=== PATIENT | male | born 1955 | race Caucasian/White ===

== ENCOUNTER → 2016-02-08 | Outpatient (CLI) | payer OTHER ==
--- NOTE | 2016-02-08 17:39 | DX ---
Right Ankle, Two Views History: Pain six weeks after blowing leaves. Pain on the lateral aspect. Findings: No acute fracture or dislocation identified. No evidence of acute fracture or dislocation o f the malleolus or ankle. Talar dome appears intact. Mild lateral soft tissue swelling. No significan t degenerative changes. Impressions 1. No definite acute fracture. 2. No significant degenerative changes.
== END ==
LOC: CIMAGING 15:32
PROVIDERS: ATTEND Internal Medicine
DX: M25.571 Pain in right ankle and joints of right foot (principal)
CPT/HCPCS: 73600-PO

== ENCOUNTER → 2016-09-20 | Outpatient (CLI) | payer OTHER | LOC: CIMAGING 12:27 | PROVIDERS: ATTEND Internal Medicine | DX: M50.31 Other cervical disc degeneration, high cervical region (principal); S13.150A Subluxation of C4/C5 cervical vertebrae, initial encounter; S13.160A Subluxation of C5/C6 cervical vertebrae, initial encounter; S13.180A Subluxation of C7/T1 cervical vertebrae, initial encounter; Z98.1 Arthrodesis status | CPT/HCPCS: 72040-PO ==

== ENCOUNTER → 2017-01-25 | Outpatient (CLI) | payer OTHER | LOC: CIMAGING 10:29 | PROVIDERS: ATTEND Internal Medicine | DX: M18.9 Osteoarthritis of first carpometacarpal joint, unspecified (principal) | CPT/HCPCS: 73130-PO ==

== ENCOUNTER → 2017-01-26 | Outpatient (CLI) | payer OTHER ==
[~2017-01-26] MED LIST: IOPAMIDOL (ISOVUE-300) 100 ML BTL ONE
== END ==
LOC: CIMAGING 08:12
PROVIDERS: ATTEND Internal Medicine
DX: R91.8 Other nonspecific abnormal finding of lung field (principal)
CPT/HCPCS: 71260; G0463; Q9967

== ENCOUNTER 2017-02-15 06:16 | Day surgery (SDC) | payer OTHER ==
[2017-02-15] MEDS ORDERED: fentaNYL 100 MCG/2 ML INJ ONE (06:46)
[2017-02-15] MEDS ORDERED: LIDOCAINE 1% 300 MG/30 ML SDV ONE (06:46)
[2017-02-15] MEDS ORDERED: MIDAZOLAM 2 MG/2 ML VIAL ONE (06:46)
[2017-02-15] MEDS ORDERED: ALBUTEROL 3 ML DEYVIAL ONE (06:46)
[2017-02-15] MEDS ORDERED: ONDANSETRON 4 MG/2 ML VIAL IVP STA (07:21)
--- NOTE | 2017-02-15 07:28 | PDPROPOC ---
Sedation Plan of Care Sedation Plan of Care: vital signs stable, mental status noted, patient educated of risks, benefits, alternatives, patient can tolerate sedation ASA Classification: ASA 3 Planned drugs: fentanyl, midazolam Mallampati Score: Class 2 Mallampati Reference Image: Patient passed 3-3-2 rule?: Yes
--- NOTE | 2017-02-15 07:28 | PDHPUP ---
History & Physical Update H&P update statement: This history and physical update is based on an assessment of the patient which was completed after admission or registration (within 24 hours), but prior to the surgery/procedure. H&P update: H&P reviewed & patient examined, no change in patient's condition since H&P completed
[2017-02-15 09:15] VITALS: BP 120/62; PULSE 68; RESP 16; TEMP 97.5; O2SAT 93
--- NOTE | 2017-02-15 09:21 | BVPULMO ---
Formerly [facility] Surgical Services- Pulmonology Patient Name: Elizabeth Valdez Procedure Date: 02/15/2017 7:36 AM Patient Type: Outpatient Attending MD/ER Physician: Ayush Chaney MD Procedure: Bronchoscopy Indications: Lung mass Providers: Ayush Chaney MD Medicines: Lidocaine 1% applied to cords 2 mL, Lidocaine 1% applied to the tracheobronchia l tree 8 mL, Fentanyl 50 mcg IV, Midazolam 2 mg IV Complications: No immediate complications Procedure: After informed consent, a time out was performed. N95 masks were worn, and the procedure was done in a negative pressure room. The patient was given appropria te topical anesthesia and intravenous sedation. The fiberopic bronchoscope was pas sed via a bite block orally into the larynx and subsequently into the lower trachea bronchial tree. Throughout the procedure, the patient's blood pressure, pulse, and oxygen saturations were monitored continuously. The Bronchoscope (Video) was introduced through the mouth and advanced to the tracheobronchial tree of both lungs. The procedure was accomplished without difficulty. The patient tolerated the procedure well. Moderate Sedation: Moderate (conscious) sedation was administered by the endoscopy nurse and super vised by the endoscopist. The following parameters were monitored: oxygen saturation, heart rate, blood pressure, respiratory rate, EKG, adequacy of pulmonary ventilation, and response to care. Findings: Right Lung Abnormalities: A completely obstructing mass was found. The mass was infiltrative. The lesion was not traversed. Extrinsic compression was found in the superior segment of the right lower lobe (B6). The airway lumen is occluded. Th e lesion was not traversed. Granulation tissue was found in the middle portion in the bronchus intermedius. It is not obstructing the airway. Endobronchial biopsies of a lesion were performed in the superior segment of th e right lower lobe using a forceps. Five samples were obtained. Transbronchial biopsies of a mass were performed at the guillermo using a needle. The sampling device penetrated the full thickness of the bronchial wall in order to reach the sampling site. Four biopsy passes were performed. Protected brushings of a lesion were obtained in the bronchus intermedius with a cytology brush. Washings were obtained. The return was clear. Post Op Diagnosis: - Lung mass - An infiltrative mass was found. This lesion is likely malignant. - Extrinsic compression was found in the superior segment of the right lower lo be (B6) secondary to a mass. - Granulation tissue was found in the bronchus intermedius. - An endobronchial biopsy was performed. - Transbronchial lung biopsies were performed. - Protected brushings were obtained. - Washings were obtained. - A suspected mass was found in the superior segment of the right lower lobe (B 6). This lesion is likely malignant. Estimated Blood Loss: Estimated blood loss: none. Recommendation: - The patient will be observed post-procedure, until all discharge criteria are met. - Follow up in clinic in one week. - The patient was advised to call or return to the clinic if there are signs or symptoms suggesting a complication/adverse reaction from the procedure. Ayush Chaney MD Ayush Chaney MD 02/15/2017 9:20:26 AM This report has been signed electronicallyAyush Chaney MD Number of Addenda: 0 Note Initiated On: 02/15/2017 7:36 AM [email or web address]
== END 2017-02-15 09:45 | disposition home or self-care (01) ==
LOC: FSGY 06:16
PROVIDERS: ATTEND Internal Medicine Critical Care Medicine
PROC: 0BBF8ZX Excision of Right Lower Lung Lobe, Via Natural or Artificial Opening Endoscopic, Diagnostic (ICD-10-PCS; principal; 2017-02-15 07:30)
DX: C34.31 Malignant neoplasm of lower lobe, right bronchus or lung (principal); B37.0 Candidal stomatitis
CPT/HCPCS: J2250; J2405; J3010; J7613

== ENCOUNTER → 2017-02-28 | Outpatient (CLI) | payer OTHER ==
[~2017-02-28] MED LIST changes: +GADOBUTROL 10 ML VIAL IVP ONE; -IOPAMIDOL (ISOVUE-300) 100 ML BTL ONE
== END ==
LOC: FIMAGING 15:45
PROVIDERS: ATTEND Internal Medicine Hematology & Oncology
DX: C34.31 Malignant neoplasm of lower lobe, right bronchus or lung (principal); R90.89 Other abnormal findings on diagnostic imaging of central nervous system
CPT/HCPCS: 70553; A9585

== ENCOUNTER 2017-03-02 08:09 | Day surgery (SDC) | payer OTHER ==
[2017-03-02] MEDS ORDERED: ceFAZolin 2 GM/SWFI 2 GM/20 ML SYR IVP ONE (08:59)
[2017-03-02] MEDS ORDERED: LR 1,000 ML IV ONE (09:00)
[2017-03-02] MEDS ORDERED: LIDOCAINE 1% 2 ML INJ ID PRN (09:00)
[2017-03-02] MEDS ORDERED: LIDOCAINE 1% 300 MG/30 ML SDV ONE (09:08)
[2017-03-02] MEDS ORDERED: BUPIVACAINE 0.5% 30 ML SDV ONE ×2 (09:09→09:38)
[2017-03-02] MEDS ORDERED: SODIUM BICARBONATE 10 MEQ/10 ML SYR IVP ONE (09:09)
[2017-03-02] MEDS ORDERED: HEPARIN 1000 UNIT/1 ML MDV ONE (09:38)
[2017-03-02] MEDS ORDERED: MIDAZOLAM 2 MG/2 ML VIAL IVP ONE (10:13)
--- NOTE | 2017-03-02 10:19 | PDANEPAE ---
ANE History of Present Illness L port placement for lung Ca ANE Past Medical History - Cardiovascular History Hx Hypertension: No Hx Arrhythmias: No Hx Chest Pain: No Hx Coronary Artery / Peripheral Vascular Disease: No Hx CHF / Valvular Disease: No Hx Palpitations: No Cardiovascular History Comment: RECENT EPISODE W/PALPITATIONS - CHECKED OUT IN ED IN WHICH THEY DISCOVERED LUNG MASS - Pulmonary History Hx COPD: No Hx Asthma/Reactive Airway Disease: No Hx Recent Upper Respiratory Infection: No Hx Oxygen in Use at Home: No Hx Sleep Apnea: No Sleep Apnea Screening Result - Last Documented: Negative Pulmonary History Comment: DX LUNG MASS 01/2017 - Neurologic History Hx Cerebrovascular Accident: No Hx Seizures: No Hx Dementia: No - Endocrine History Hx Diabetes: No - Renal History Hx Renal Disorders: No - Liver History Hx Hepatic Disorders: No - Neurological & Psychiatric Hx Hx Neurological and Psychiatric Disorders: No - Cancer History Hx Cancer: No Cancer History Comment: SKIN CA REMOVED- FACE - Congenital Disorder History Hx Congenital Disorders: No - GI History Hx Gastrointestinal Disorders: No Gastrointestinal History Comment: GASTROPARESIS - Other Health History Other Health History: NEG - Chronic Pain History Chronic Pain: Yes (NECK PAIN) - Surgical History Prior Surgeries: BRONCHOSCOPY. CERVICAL FUSION. UMB HERNIA. HERNIA ING. AMPUTATION L MID FINGER TIP. L SHOULDER ANE Review of Systems Review of Systems: - Exercise capacity METS (RN): 4 METS ANE Patient History - Allergies Allergies/Adverse Reactions: propofol Allergy (Severe, Verified 02/12/17 11:51) W/R SIDE NUMBNESS tramadol Allergy (Intermediate, Verified 02/12/17 11:51) ALTERED "ZOMBIE-LIKE" FEELING gabapentin Allergy (Verified 02/12/17 11:51) MANIC EPISODE NSAIDS (Non-Steroidal Anti-Inflamma Allergy (Verified 03/02/17 09:18) - Home Medications Home medications: home medication list seen and reviewed Home Medications: HYDROmorphone 02/12/17 [Last Taken 03/01/17] Herbals/Supplements -Info Only 02/12/17 [Last Taken 02/28/17] Lidoderm 5% Patch (*) 02/12/17 [Last Taken Unknown] Ondansetron 02/12/17 [Last Taken 02/27/17] Reglan 02/12/17 [Last Taken Unknown] - NPO status NPO Status: no food or drink >8 hours NPO Since - Liquids (Date): 03/01/17 NPO Since - Liquids (Time): 23:30 NPO Since - Solids (Date): 03/01/17 NPO Since - Solids (Time): 20:30 - Anes Hx Anes Hx: post operative nausea and vomiting - Smoking Hx Smoking Status: Former smoker - Alcohol Use Alcohol Use: None - Family Anes Hx Family Anes Hx: none (+MJ) Family Hx Anesthesia Complications: NEG ANE Labs/Vital Signs - Vital Signs Blood Pressure: 112/72 Heart Rate: 57 Respiratory Rate: 16 O2 Sat (%): 93 Height: 175.26 cm Weight: 56.699 kg ANE Physical Exam - Airway Neck exam: decreased ROM Mallampati Score: Class 2 Mouth exam: normal dental/mouth exam - Pulmonary Pulmonary: no respiratory distress - Cardiovascular Cardiovascular: regular rate and rhythym - ASA Status ASA Status: II ANE Anesthesia Plan Anesthesia Plan: MAC (GA only if necessary)
[2017-03-02] MEDS ORDERED: fentaNYL 100 MCG/2 ML INJ ONE ×2 (10:35→10:43)
[2017-03-02] MEDS ORDERED: MIDAZOLAM 2 MG/2 ML VIAL ONE (10:42)
--- NOTE | 2017-03-02 11:19 | POSTOPPROG ---
Post Op Note Date of Operation: 03/02/17 Surgeon: Dolores Nolasco Anesthesiologist: melody Anesthesia: IV Sedation Pre-op Diagnosis: R lung cancer Post-op Diagnosis: R lung cancer Indication: 61 yo with lung cancer requires port for chemo Procedure: L IJ power port placement Findings: tip in SVC Inf/Abcess present in the surg proc area at time of surgery?: No EBL: Minimal Specimen(s): none
[2017-03-02] MEDS ORDERED: ONDANSETRON 4 MG/2 ML VIAL IVP PRN (11:32)
[2017-03-02] MEDS ORDERED: LABETALOL HCL 5 MG/ML 20 ML MDV IVP PRN (11:32)
[2017-03-02] MEDS ORDERED: NALOXONE HCL 0.4 MG/ML INJ IVP PRN (11:32)
[2017-03-02] MEDS ORDERED: LR 500 ML IV PRN (11:32)
[2017-03-02] MEDS ORDERED: DEXAMETHASONE 4 MG/ML VIAL IVP PRN (11:32)
[2017-03-02] MEDS ORDERED: PHENYLEPHRINE HCL 100 MCG/ML SYR IVP PRN (11:32)
[2017-03-02] MEDS ORDERED: fentaNYL 100 MCG/2 ML INJ IVP PRN (11:32)
[2017-03-02] MEDS ORDERED: ALBUTEROL 3 ML DEYVIAL IH PRN (11:32)
--- NOTE | 2017-03-02 11:34 | POSTANESTH ---
Post Anesthetic Evaluation Cardiovascular Status: Normal, Stable Respiratory Status: Normal, Stable Level of Consciousness/Mental Status: Can Participate in Eval Pain Control: Adequate, Prn Tx Ordered Nausea/Vomiting Control: Adequate, Prn Tx Ordered Complications Possibly Related to Anesthesia: None Noted
[2017-03-02 12:25] VITALS: BP 112/73; PULSE 55; RESP 16; TEMP 98.7; O2SAT 94
--- NOTE | 2017-03-02 12:40 | GOP ---
[f rep st] OPERATIVE REPORT DATE OF OPERATION: SURGEON: Dolores Nolasco MD ANESTHESIA: Dr. Troy Lorenzo/monitored anesthesia care with IV sedation. PREOPERATIVE DIAGNOSIS: Right lower lobe lung cancer. POSTOPERATIVE DIAGNOSIS: Right lower lobe lung cancer. PROCEDURE PERFORMED: Left internal jugular PowerPort placement. FINDINGS: Tip in the SVC. ESTIMATED BLOOD LOSS: 10 cc. INDICATIONS: Elizabeth Valdez is a 61-year-old with lung cancer who Required port for chemotherapy. DESCRIPTION OF PROCEDURE: Elizabeth was brought into the operating room, placed supine on the table, and m onitored anesthesia care with IV sedation was performed. His bilateral neck and chest were prepped a nd draped in the usual sterile fashion. He was placed in the Trendelenburg position. I infiltrated all sites with 0.5% Marcaine mixed with 1% lidocaine. I attempted access to the left subclavian vein but there was brighter return of blood flow. I removed the needle. I then used the ultrasound to ac cess the left internal jugular vein with dark return of blood. I threaded the guidewire and removed the needle. Placement was confirmed with fluoroscopy. I created a pocket to accommodate the port in the left chest. I tunneled this up to the insertion site. I measured the catheter under fluoroscop y and cut it to size. Using the Seldinger technique, I placed a dilator and sheath over the wire. I removed the wire and the dilator. I threaded the catheter through the sheath and peeled away the sh eath. Placement was confirmed with fluoroscopy. The port withdrew blood easily and was flushed with heparin. The pocket was closed with 3-0 Vicryl followed by 4-0 Monocryl. Dermabond applied. He wa s awakened in the operating room and transferred to PACU in stable condition. /[id number]/MODL
== END 2017-03-02 12:40 | disposition home or self-care (01) ==
LOC: FSGY 08:09
PROVIDERS: ATTEND Surgery
PROC: BB1DZZZ Fluoroscopy of Upper Airways (ICD-10-PCS; 2017-03-02)
PROC: 0JH60XZ Insertion of Tunneled Vascular Access Device into Chest Subcutaneous Tissue and Fascia, Open Approach (ICD-10-PCS; principal; 2017-03-02 09:45)
PROC: 02HV33Z Insertion of Infusion Device into Superior Vena Cava, Percutaneous Approach (ICD-10-PCS; principal; 2017-03-02 09:45)
DX: C34.91 Malignant neoplasm of unspecified part of right bronchus or lung (principal); G89.29 Other chronic pain; E78.5 Hyperlipidemia, unspecified; Z87.891 Personal history of nicotine dependence; Z82.49 Family history of ischemic heart disease and other diseases of the circulatory system; Z98.1 Arthrodesis status
CPT/HCPCS: C1788; J0690; J1642; J2250; J3010

== ENCOUNTER → 2017-12-17 | Outpatient (CLI) | payer OTHER | LOC: CIMAGING 11:46 | PROVIDERS: ATTEND Internal Medicine | DX: M79.644 Pain in right finger(s) (principal) | CPT/HCPCS: 73130-PO ==

== ENCOUNTER → 2018-01-31 | Outpatient (CLI) | payer OTHER | LOC: CIMAGING 12:12 | PROVIDERS: ATTEND Internal Medicine Hematology & Oncology | DX: R07.89 Other chest pain (principal); Z85.118 Personal history of other malignant neoplasm of bronchus and lung | CPT/HCPCS: 71046-PO; 82784-90; 86334-90 ==